=== PATIENT | male | born 1990 | race Caucasian/White ===

== ENCOUNTER 2020-04-07 13:11 | Emergency (ER) | payer SELFPAY ==
[~2020-04-07] VITALS: Ht 172.7 cm; Wt 98.4 kg
[2020-04-07 14:19] VITALS: BP 175/88
[2020-04-07 14:56] LABS: CLARITY,URINE CLEAR; COLOR,URINE YELLOW
[2020-04-07 14:57] LABS: BILIRUBIN,URINE NEG (NEG); GLUCOSE,URINE NEG (NEG); NITRITE,URINE NEG (NEG); UROBILINOGEN,URINE 0.2 mg/dL (0.2 mg/dL)
[2020-04-07 14:58] LABS: BACTERIA,URINE FEW /HPF (0-FEW); SQUAMOUS EPITHELIAL CELL,UR MOD /LPF
--- NOTE | 2020-04-07 15:21 | RAD ---
PA chest and left rib series 3 views: Reason for examination: Left-sided rib pain. The heart size is normal. Mediastinum is unremarkable. Lung alan are clear. No pneumothorax or pleu ral effusions are seen. No acute bony abnormality seen in the thorax. 3 views of the left ribs show a fracture laterally at the left ninth rib with minimal displacement. N o other site of fracture is seen. IMPRESSION: No acute cardiopulmonary disease. Minimally displaced fracture at the left ninth rib. Electronically signed by: Suzette Haney MD (04/07/2020 3:18 PM) POOL
[2020-04-07] MEDS ORDERED: IBUP800T19 PO (15:35)
--- NOTE | 2020-04-07 15:36 | PHYS DOC ---
Past History Past Medical History: No Pertinent History, Hypertension Past Surgical History: No Surgical History, Tonsillectomy Alcohol Use: Occasionally General Adult EDM: Chief Complaint: FLANK PAIN HPI: HPI: Patient is a 30-year-old male who presented to ER due to left-sided lower rib pain and left flank pain for a week. Pain worse with cough or palpation or taking a deep breaths. Patient denies any injury, no abdominal pain, no nausea vomiting. Patient denies any trouble breathing. Patient denies any urinary symptoms. Review of Systems: Review of Systems: Constitutional: Denies fever or chills Eyes: Denies change in visual acuity HENT: Denies nasal congestion or sore throat Respiratory: Denies cough or shortness of breath Cardiovascular: Positive for left lower chest wall pain, left flank pain GI: Denies abdominal pain, nausea, vomiting, bloody stools or diarrhea : Denies dysuria Musculoskeletal: Denies back pain or joint pain Integument: Denies rash Neurologic: Denies headache, focal weakness or sensory changes Endocrine: Denies polyuria or polydipsia Lymphatic: Denies swollen glands Psychiatric: Denies depression or anxiety Allergies: Allergies: Allergies Coded Allergies Type Severity Reaction Last Updated Verified No Known Drug Allergies 04/07/20 No Physical Exam: PE: Constitutional: Well developed, well nourished, no acute distress, non-toxic appearance. [] HENT: Normocephalic, atraumatic, bilateral external ears normal, oropharynx moist, no oral exudates, nose normal. [] Eyes: PERRLA, EOMI, conjunctiva normal, no discharge. [] Neck: Normal range of motion, no tenderness, supple, no stridor. [] Cardiovascular:Heart rate regular rhythm, no murmur [] Lungs & Thorax: Bilateral breath sounds clear to auscultation, left lateral lower chest wall tender to palpation , no crepitus. Abdomen: Bowel sounds normal, soft, no tenderness, no masses, no pulsatile masses. [] Skin: Warm, dry, no erythema, no rash. [] Back: No tenderness, Left CVA tenderness. [] Extremities: No tenderness, no cyanosis, no clubbing, ROM intact, no edema. [] Neurologic: Alert and oriented X 3, normal motor function, normal sensory function, no focal deficits noted. [] Psychologic: Affect normal, judgement normal, mood normal. [] Current Patient Data: Labs: Laboratory Tests Test 04/07/20 14:15 Urine Collection Type Unknown Urine Color Yellow Urine Clarity Clear Urine pH 5.5 Urine Specific [place] 1.025 Urine Protein >100 mg/dl (NEG-TRACE) Urine Glucose (UA) Neg mg/dL (NEG) Urine Ketones (Stick) Neg mg/dL (NEG) Urine Blood Trace (NEG) Urine Nitrite Neg (NEG) Urine Bilirubin Neg (NEG) Urine Urobilinogen Dipstick 0.2 mg/dL (0.2 mg/dL) Urine Leukocyte Esterase Neg (NEG) Urine RBC 3-5 /HPF (0-2) Urine WBC 1-4 /HPF (0-4) Urine Squamous Epithelial Cells Mod /LPF Urine Bacteria Few /HPF (0-FEW) Vital Signs: Vital Signs Date Time Temp Pulse Resp B/P (MAP) Pulse Ox O2 Delivery O2 Flow Rate FiO2 04/07/20 14:19 97.7 98 20 175/88 (117) 98 Room Air EKG: EKG: [] Radiology/Procedures: Radiology/Procedures: [][address] [address] IMAGING REPORT Signed PATIENT: NIR CRUMP ACCOUNT: [id number] : 1990 LOCATION: ER AGE: 30 SEX: M EXAM STATUS: REG ER ORD. PHYSICIAN: SAURABH WRIGHT DO REASON: LEFT SIDE RIBS PAIN PROCEDURE: RIBS LEFT AND PA CHEST PA chest and left rib series 3 views: Reason for examination: Left-sided rib pain. The heart size is normal. Mediastinum is unremarkable. Lung alan are clear. No pneumothorax or pleural effusions are seen. No acute bony abnormality seen in the thorax. 3 views of the left ribs show a fracture laterally at the left ninth rib with minimal displacement. No other site of fracture is seen. IMPRESSION: No acute cardiopulmonary disease. Minimally displaced fracture at the left ninth rib. Electronically signed by: Suzette Betancur MD (04/07/2020 3:18 PM) [facility] AND SIGNED BY: SUZETTE BETANCUR MD DATE: 04/07/20 7261 CC: PCP,NO; WRIGHT,PETER T DO ~MTH0 0 Heart Score: Risk Factors: Risk Factors: DM, Current or recent (<one month) smoker, HTN, HLP, family history of CAD, obesity. Risk Scores: Score 0 - 3: 2.5% MACE over next 6 weeks - Discharge Home Score 4 - 6: 20.3% MACE over next 6 weeks - Admit for Clinical Observation Score 7 - 10: 72.7% MACE over next 6 weeks - Early Invasive Strategies Course & Med Decision Making: Course & Med Decision Making Pertinent Labs and Imaging studies reviewed. (See chart for details) [] Dragon Disclaimer: Dragon Disclaimer: This electronic medical record was generated, in whole or in part, using a voice recognition dictation system. Departure Departure: Impression: Primary Impression: Left rib fracture Disposition: 01 DC HOME SELF CARE/HOMELESS Condition: STABLE Referrals: PCP,THONG (PCP) follow up with your doctor as needed Patient Instructions: Rib Fracture Additional Instructions: Thank you for visiting our Emergency Department. We appreciate you trusting us with your care. If any additional problems come up don't hesitate to return to visit us. Please follow up with your primary care provider so they can plan additional care if needed and know about the problem that you had. If symptoms worsen come back to the Emergency Department. Any concerning symptoms that start such as chest pain, shortness of air, weakness or numbness on one side of the body, running high fevers or any other concerning symptoms return to the ER. Scripts Ibuprofen (IBUPROFEN) 800 Mg Tablet 1 TAB PO TID PRN for PAIN, #30 TAB 1 Refill Prov: SAURABH WRIGHT DO 04/07/20 SAURABH WRIGHT DO Apr 07, 2020 15:35
== END 2020-04-07 15:50 | disposition home or self-care (01) ==
LOC: ER 13:11
DX: S22.32XA Fracture of one rib, left side, initial encounter for closed fracture (principal); I10 Essential (primary) hypertension; X58.XXXA Exposure to other specified factors, initial encounter; Y93.H3 Activity, building and construction; Y92.89 Other specified places as the place of occurrence of the external cause; Y99.8 Other external cause status
CPT/HCPCS: 71101; 81001; 99284

== ENCOUNTER 2021-06-08 16:04 | Emergency (ER) | payer BC ==
[~2021-06-08] VITALS: Ht 172.7 cm; Wt 90.8 kg
[~2021-06-08 16:04] MED LIST: IBUP800T19 PO
[2021-06-08] MEDS ORDERED: OXYMETAZOLINE 0.05% NASAL SPRAY 30ML BOTTLE. NS ONE ×2 (16:22→16:30)
--- NOTE | 2021-06-08 16:35 | PHYS DOC ---
Past History Past Medical History: No Pertinent History, Hypertension Past Surgical History: No Surgical History, Tonsillectomy Smoking: Non-smoker Alcohol Use: Occasionally Drug Use: None General Adult EDM: Chief Complaint: NOSEBLEED HPI: HPI: Pt is a 31 yo M who presents c/o epistaxsis for a couple hours. Pt reports bleeding out of L nare. Pt has had a few nose bleeds this week. Patient does report digital manipulation. Denies any other known trauma. Denies fever or chills. Denies use of blood thinners. Pt denies other complaints Review of Systems: Review of Systems: Constitutional: Denies fever or chills HENT: Denies nasal congestion or sore throat; Reports epistaxsis Integument: Denies rash or skin lesions Neurologic: Denies headache, focal weakness or sensory changes; denies dizziness or lightheadedness Complete systems were reviewed and found to be within normal limits, except as documented in this note. Current Medications: Current Meds: Current Medications Medications (Trade) Dose Ordered Sig/Martha Start Time Stop Time Status Last Admin Dose Admin Oxymetazoline HCl (Afrin) 2 spray 1X ONCE 06/08/21 16:30 06/08/21 16:31 DC Allergies: Allergies: Allergies Coded Allergies Type Severity Reaction Last Updated Verified Penicillins Allergy Unknown 06/08/21 Yes red (food color) Allergy Unknown 06/08/21 Yes Physical Exam: PE: Constitutional: Well developed, well nourished, no acute distress, non-toxic appearance HENT: Normocephalic, atraumatic, active bleeding from L anterior nare, some blood noted in pharynx Eyes: Conjunctiva normal, no discharge Neck: Normal range of motion, supple Lungs & Thorax: No respiratory distress, equal chest rise and fall Abdomen: Soft, no tenderness Skin: Warm, dry, no erythema, no rash Extremities: No tenderness, ROM intact, no edema Neurologic: Alert and oriented X 3, no focal deficits noted Psychologic: Affect normal, judgment normal Current Patient Data: Vital Signs: Vital Signs Date Time Temp Pulse Resp B/P (MAP) Pulse Ox O2 Delivery O2 Flow Rate FiO2 06/08/21 16:13 98.6 109 16 156/105 (122) 98 Room Air EKG: EKG: [] Radiology/Procedures: Radiology/Procedures: [] Heart Score: C/O Chest Pain: N/A Course & Med Decision Making: Course & Med Decision Making Patient presents with acute epistaxis from left nare. Attempted Afrin administration with nasal clamp x2 rounds x15 minutes without hemostasis. A 5.5 cm Rhino Rocket therefore placed with interval resolution. Patient tolerating well and without difficulty. Patient stable for discharge with outpatient follow-up with PCP. Discussed findings and plan with patient, who acknowledges understanding and agreement. Iesha Disclaimer: Iesha Disclaimer: This electronic medical record was generated, in whole or in part, using a voice recognition dictation system. Additional Procedures Progress Epistaxsis control Verbal consent obtained. Time out performed. Hand hygiene utilized. Pt self expressed clots. 2 sprays of Afrin placed in each nare and nasal clamp placed for 15 minutes (x2) Pt with continued bleeding. Placed 5.5cm Rhino rocket to L nare with administration of approximately 4 mL of air with interval resolution of bleeding. Patient tolerated procedure well and without difficulty. Departure Departure: Impression: Primary Impression: Epistaxis Disposition: 01 HOME / SELF CARE / HOMELESS Condition: STABLE Referrals: PCP,NO (PCP) Patient Instructions: Nosebleed, [id number] Additional Instructions: Follow-up closely with your doctor and/or ear nose and throat doctor for removal of Rhino Rocket device. Take [id number] ibuprofen and or Tylenol for pain or discomfort. May call Dr. Rupa Bales (ENT) for followup. [address] [place] [address] MARIFER ROMO DO Jun 08, 2021 16:35
== END 2021-06-08 17:41 | disposition home or self-care (01) ==
LOC: ER 16:04
DX: R04.0 Epistaxis (principal); I10 Essential (primary) hypertension; Z88.0 Allergy status to penicillin; Z88.8 Allergy status to other drugs, medicaments and biological substances
CPT/HCPCS: 30901; 99284

== ENCOUNTER 2021-06-09 09:21 | Emergency (ER) | payer BC ==
[~2021-06-09] VITALS: Ht 172.7 cm; Wt 90.8 kg
--- NOTE | 2021-06-09 09:30 | PHYS DOC ---
Past History Past Medical History: No Pertinent History, Hypertension Past Surgical History: Tonsillectomy Smoking: Non-smoker Alcohol Use: Occasionally Drug Use: None General Adult EDM: Chief Complaint: WOUND CHECK HPI: HPI: Patient is a 31-year-old male who presents here to have his Rhino Rocket removed from his left nare. He was seen here yesterday for epistaxis that did not respond to conservative measures. He has had no more bleeding, no sore throat, no trauma or injury. No dizziness, headache, nausea vomiting, chest pain, cough, fevers or chills. He was unable to be seen by ENT until later this week, so he was told to come back to the ER for packing removal. Review of Systems: Review of Systems: Constitutional: Denies fever or chills Eyes: Denies change in visual acuity HENT: No further epistaxis, mild congestion, no bleeding, no sore throat, no facial or oral injury or trauma reported Respiratory: Denies cough or shortness of breath Cardiovascular: Denies chest pain GI: Denies abdominal pain, nausea, vomiting Musculoskeletal: Denies back pain or joint pain Integument: Denies rash Neurologic: Denies headache or dizziness Psychiatric: Denies depression or anxiety Allergies: Allergies: Allergies Coded Allergies Type Severity Reaction Last Updated Verified Penicillins Allergy Unknown 06/08/21 Yes red (food color) Allergy Unknown 06/08/21 Yes Physical Exam: PE: Constitutional: Well developed, well nourished, no acute distress, non-toxic appearance. [] HENT: Normocephalic, atraumatic, oropharynx patent and clear, no drainage, no bleeding, no evidence of oral or facial trauma. External ears are normal bilaterally. Right nares patent and clear. There is a Rhino Rocket in the left naris, which is removed easily, there is very scant blood on the Rhino Rocket, inspection of the left naris reveals no further epistaxis, no bleeding, no clots, no evidence of any abnormality. Eyes: PERRL, EOMI, conjunctiva normal, no discharge. [] Neck: Trachea midline, no tenderness Cardiovascular: Well-perfused appearing Lungs & Thorax: Respirations are nonlabored Skin: Warm, dry, no erythema, no rash. [] Extremities: No limb deformity, no edema Neurologic: Alert and oriented X 3, normal motor function, normal sensory function, no focal deficits noted. [] Psychologic: Affect normal, judgement normal, mood normal. [] EKG: EKG: [] Radiology/Procedures: Radiology/Procedures: [] Heart Score: C/O Chest Pain: No Risk Factors: Risk Factors: DM, Current or recent (<one month) smoker, HTN, HLP, family history of CAD, obesity. Risk Scores: Score 0 - 3: 2.5% MACE over next 6 weeks - Discharge Home Score 4 - 6: 20.3% MACE over next 6 weeks - Admit for Clinical Observation Score 7 - 10: 72.7% MACE over next 6 weeks - Early Invasive Strategies Course & Med Decision Making: Course & Med Decision Making I remove the Rhino Rocket without difficulty. Home care instructions are given. No indication for further invasive exams, no indication for labs, the patient has no evidence of bleeding or objective abnormality, he has no subjective complaints or discomfort. Return precautions are given. He should follow-up wi th a primary care physician, ENT for any further or recurrent epistaxis issues. Iesha Disclaimer: Iesha Disclaimer: This electronic medical record was generated, in whole or in part, using a voice recognition dictation system. Departure Departure: Impression: Primary Impression: Left-sided epistaxis Additional Impression: Encounter for removal of nasal packing Disposition: 01 HOME / SELF CARE / HOMELESS Condition: GOOD Referrals: PCP,THONG (PCP) Patient Instructions: Nosebleed Additional Instructions: Return to the ER for heavy or uncontrolled nasal bleeding, dizziness, headache, vomiting or other concerns. If you should have any return of bleeding, spray some Afrin on a cotton swab, gently placed in the nostril that is bleeding, use the nasal clamp and hold steady pressure for 15 to 30 minutes. Please follow-up with your primary care physician and also for ENT for any recurring nosebleed issues. MARTHA WILSON DO Jun 09, 2021 09:30
[2021-06-09 09:31] VITALS: BP 146/92
== END 2021-06-09 09:45 | disposition home or self-care (01) ==
LOC: ER 09:21
DX: Z48.00 Encounter for change or removal of nonsurgical wound dressing (principal); R04.0 Epistaxis; I10 Essential (primary) hypertension; Z88.0 Allergy status to penicillin; Z88.8 Allergy status to other drugs, medicaments and biological substances
CPT/HCPCS: 99282